=== PATIENT | female | born 1995 | race Caucasian/White ===

== ENCOUNTER → 2018-09-09 | Outpatient (CLI) | payer BC ==
[~2018-09-09] MED LIST: CITA-137 PO; CITA-145 PO; DUL100/5PT INH; IOPAMIDOL 76% 75 ML INFUS BTL 0 ML ONE; LOR5/325 PO; MONT10TA PO; ORAL BIRTH CONTROL PO; PRED20TA6 PO
--- NOTE | 2018-09-09 18:02 | RADIOLOGY IMAGING REPORT ---
FACILITY: [facility] - [place] PATIENT NAME: Carolina Parker : 1995 MR: [id number] V: [id number] EXAM DATE: ORDERING PHYSICIAN: LUCIANO WYNN TECHNOLOGIST: Location: [facility] [place] Patient: Carolina Parker : 1995 Visit/Account:[id number] Date of Sevice: 09/09/2018 EXAMINATION: CT head without IV contrast HISTORY: Fall. TECHNIQUE: Axial CT images of the head were obtained from the vertex to the skull base without IV c ontrast, with coronal and sagittal 2D reconstructed images. One of the following dose optimization techniques was utilized in the performance of this exam: Autom ated exposure control; adjustment of the mA and/or kV according to the patient's size; or use of an i terative reconstruction technique. Specific details can be referenced in the facility's radiology C T exam operational policy. COMPARISON: None. FINDINGS: The intracranial contents are unremarkable. No CT evidence of intracranial hemorrhage or mass effect . No midline shift or extra-axial fluid collections. Pitt-white differentiation is maintained. The calvarium is intact. The visualized paranasal sinuses and mastoid air cells are unopacified. IMPRESSION: Unremarkable noncontrast head CT. Report Dictated By: Rommel Moran MD at 09/09/2018 5:55 PM Report E-Signed By: Rommel Moran MD at 09/09/2018 5:58 PM WSN:[id number]
== END ==
LOC: CT 17:07
PROVIDERS: ATTEND Nurse Practitioner Family
DX: S09.90XA Unspecified injury of head, initial encounter (principal)
CPT/HCPCS: 70450; Q9967